=== PATIENT | male | born 1995 | race Two or more races ===

== ENCOUNTER 2017-02-21 01:23 | Emergency (ER) | payer BC ==
--- NOTE | ~2017-02-21 | ER ---
PATIENT'S NAME: KELY ABRAMS [facility] AGE: 21 Y [address] ROOM: [place] [address] LOCATION: [facility] ADMIT DATE: 02/21/2017 ER/Outpatient Report DISCHARGE DATE: FAMILY PHYSICIAN: Wisam Ball MD ATTENDING PHYSICIAN: Morelia Griffith Admission date and time documented in the medical record. I saw the patient at 0135 hours. CHIEF COMPLAINT: Abdominal pain with nausea, vomiting, diarrhea. HISTORY OF PRESENT ILLNESS: The patient is a 21-year-old male, who has had about 2- to 3-week history of generalized abdominal pain, worsening gradually since this past . Apparently on , he was diagnosed with possible ulcers but not placed on any medication. He presents tonight with generalized abdominal pain. He denies any fever, chills, or sweats. No coughs, colds, flus. He has had 2 episodes of vomiting and some diarrhea. He says that his diarrhea has been dark in color. No bright red blood in his vomitus or his stools. He has not been constipated. No chest pain, shortness of breath. No back pain. No lightheadedness, dizziness, syncope, or near syncope. No headache, eyes, ears, nose, throat, neck, or spine pain. No fall or trauma. No joint or muscle swelling, redness, or pain. No skin eruptions or rash. No history of neuro changes, psych issues, endocrine problems. HOME MEDICATIONS: None. ALLERGIES: NONE. SOCIAL HISTORY: Nonsmoker. Occasional intake of alcohol. SIGNIFICANT PAST MEDICAL HISTORY: Negative. OPERATIONS: None. REVIEW OF SYSTEMS: All systems reviewed by me are negative with the exception of those discussed in the history of present illness. PATIENT'S NAME: KELY ABRAMS [facility] AGE: 21 Y [address] ROOM: [place] [id number] LOCATION: [facility] ADMIT DATE: 02/21/2017 ER/Outpatient Report DISCHARGE DATE: FAMILY PHYSICIAN: Wisam Ball MD ATTENDING PHYSICIAN: Morelia Griffith PHYSICAL EXAMINATION: VITAL SIGNS: Temperature 97.3 tympanic, pulse 73, respirations 16, blood pressure 140/92, O2 saturation on room air is 98%. HEAD: Normocephalic. EYES, EARS, NOSE, THROAT: Clear. Mucous membranes moist. NECK: Negative. LUNGS: Clear. HEART: Regular. Pulses are palpable. No chest wall or ribcage pain to palpation. ABDOMEN: Nondistended. Tender diffusely, especially in the mid upper abdomen. Bowel tones present. No organomegaly or abnormal masses palpable. EXTREMITIES: Intact. NEUROVASCULAR: Intact. SKIN: Clear. No skin eruptions or rash. LABORATORY DATA AND X-RAYS: Amylase was slightly elevated 121, lipase was normal at 363. CMS was normal except for low calcium of 8.4, elevated alkaline phosphatase 147. H. pylori was negative. White count was 8600, 59 segs, 34 lymphs, 6 monos, 2 eos. Hemoglobin was 15.2 with hematocrit 45.2, platelet count was 276,000. Heme test stool, occult blood was negative. CT scan of the abdomen and pelvis showed no free air or free fluid. Normal appendix. Lung bases were clear. Normal gallbladder. Normal biliary ductal system. Normal pancreas. The patient had look like mild small bowel ileus in the pelvis with a few fluid filled loops of bowel. No significant obstruction or other abnormalities. CT scan was read by Radiology, see dictated transcribed report. IMPRESSION: Generalized abdominal pain. Etiology uncertain at this time. Might be mild enteritis, however, may be some peptic ulcer disease. PLAN: I did start the patient on IV normal saline fluids, gave him 1 L in the emergency department. Given fentanyl for pain. Gave him Protonix 40 mg IV, Zofran 8 mg IV. Dismissed the patient home. Observation. Activity as tolerated. Avoid nicotine, alcohol, caffeine, spicy, greasy foods. We will start him on Prevacid 30 mg once a day for 30 days. Gave him Zofran 4 mg as needed for nausea, vomiting, and Canvas 7.5/325 as needed for pain. Follow up with personal physician in 7 to 10 days. If no improvement, may need to have upper endoscopy. Discussion ensued with the patient's family in regard to my findings and recommendations, they understand. PATIENT'S NAME: KELY ABRAMS [facility] AGE: 21 Y [address] ROOM: [place] [id number] LOCATION: [facility] ADMIT DATE: 02/21/2017 ER/Outpatient Report DISCHARGE DATE: FAMILY PHYSICIAN: Wisam Ball MD ATTENDING PHYSICIAN: Morelia Griffith MORELIA GRIFFITH MD SDS/modl /[id number] d: 02/21/17 0427 t: 02/24/17 1812, OUTPATIENT REPORT
[2017-02-21 02:08] LABS: BASOPHIL % 0.2 %; EOSINOPHIL # 0.1 K/uL (0.0-0.5); EOSINOPHIL % 1.5 %; HEMATOCRIT 45.2 % (37.0-53.0); HEMOGLOBIN 15.2 g/dL (12.0-17.0); IMMATURE GRANULOCYTE % 0.1 %; LYMPHOCYTE # 2.9 K/uL (0.8-4.0); MCH 27.1 pg (27.0-34.0); MCHC 33.6 gm/dL (32.0-36.5); MCV 80.7 fl (83.0-98.0); MONOCYTE # 0.5 K/uL (0.0-1.0); MONOCYTE % 5.7 %; MPV 10.2 fl (9.4-12.4); NEUTROPHIL % 58.5 %; NRBC % 0 /100WBC (0-0.00); PLATELET COUNT 276 K/uL (150-450); RDW-CV 12.7 % (11.9-14.6); WBC 8.6 K/uL (4.0-11.0)
[2017-02-21 02:24] LABS: ALBUMIN 3.8 gm/dL (3.5-5.0); ALK PHOS 147 IU/L (33-138); ALT 19 IU/L (12-78); ANION GAP 11.7 (10.0-19.0); AST 15 IU/L (10-40); BLOOD UREA NITROGEN 20 mg/dL (6-24); CALCIUM 8.4 mg/dL (8.5-10.5); CHLORIDE 107 mMol/L (96-110); CO2 23 mMol/L (22-32); POTASSIUM 3.7 mMol/L (3.7-5.1); SODIUM 138 mMol/L (135-145); TOTAL BILIRUBIN 0.3 mg/dL (0.0-1.5); TOTAL PROTEIN 7.5 g/dL (6.0-8.4)
== END 2017-02-21 04:02 | disposition disaster alternative care site (69) ==
LOC: GMED 01:23
PROVIDERS: Emergency Medicine
DX: R10.84 Generalized abdominal pain (principal); R11.2 Nausea with vomiting, unspecified; R19.7 Diarrhea, unspecified
CPT/HCPCS: C9113; J2405; J3010; J7030; Q9967